=== PATIENT | male | born 1960 | race Caucasian/White ===

== ENCOUNTER → 2024-06-23 | Outpatient (CLI) | payer BC ==
--- NOTE | 2024-06-23 11:52 | US ---
EXAMINATION TYPE: US prostate transrectal DATE OF EXAM: 06/23/2024 COMPARISON: NONE CLINICAL INDICATION: Male, 63 years old with history of R97.20 elevated PSA Levels; TECHNIQUE: Grayscale and color Doppler imaging of the prostate gland. This examination was performed using the transrectal probe. EXAM MEASUREMENTS: Gland Size: 5.9 x 4.8 x 6.0 cm Volume: 88.9 Predicted PSA: 10.6 Actual PSA (if available):4.2 Appears enlarged with calcifications visualized. IMPRESSION: 1. No suspicious masses visualized. 2. Prostatomegaly with coarse calcifications. 3. Note that prostate MRI is a more sensitive exam for the detection of clinically significant prost ate adenocarcinoma. [facility], , 06/23/2024 11:50 AM
== END | disposition home or self-care (01) ==
LOC: RADUSWWP 09:15
PROVIDERS: ATTEND Internal Medicine
DX: N40.0 Benign prostatic hyperplasia without lower urinary tract symptoms (principal); R97.20 Elevated prostate specific antigen [PSA]
CPT/HCPCS: 76872